=== PATIENT | female | born 1935 | race Caucasian/White ===

== ENCOUNTER → 2016-02-15 | Outpatient (CLI) | payer OTHER, MEDICARE ==
[~2016-02-15] VITALS: Ht 157.5 cm; Wt 63.3 kg
[~2016-02-15] MED LIST: ATIVAN0.5 MG PO; CRESTOR5 MG PO; EVISTA PO; GABAPENTIN100 MG PO; IBUPROFEN 600600 M1 PO; LEVOTHYROXIN0.088 MG PO; LYRICA 50 MG50 MG PO; LYRICA 75 MG CA75 MG PO; PREVACID15 MG PO; QUININE PO; SYNTHROID125 MCG PO; TRAMADOL 50 MG50 MG PO
--- NOTE | ~2016-02-15 | HPC ---
[facility] [address] [place] [address] PAIN MANAGEMENT CONSULTATION Name: SARAH BETH ROSARIO Room #: REG ELLEChelly Lea#: [id number] Admission: 02/15/16 Attend Phys: Eddie Baldwin MD Discharge: Date of : 31 Report #: [id number] THIS REPORT FOR: //name// CC: Harmeet Baldwin DATE OF SERVICE: 02/15/2016 Followup visit for post-laminectomy syndrome with radiculopathy, new herniated disk at L2-L3. The patient returns to pain clinic today, has pain radiating into her left hip and thigh. She has had previous back surgery. A new MRI performed earlier in the year revealed that there is a herniated disk at L2-L3 with encroachment upon lateral recess posteriorly. This is likely affecting nerve roots that passed by just below the communis. Epidural steroid injection provided over 50% relief earlier in the year. She would like another injection today. We also discussed Lyrica at the request of ____. Although it does seem to be helpful at a dose of 75 mg 3 times a day, it is quite expensive. We talked about a transition today and I started her on 200 mg of gabapentin 3 times a day with instructions every 48 hours to increase by another 100 mg. She can go up to 200, then 300 and then 400 three times daily and see if this will accomplish the same goal as the Lyrica, saving her quite a bit of money. She will watch for additional side effects from this transition. I have asked her to make the transition straight over on 1 day without tapering one to the other. PHYSICAL EXAMINATION: She is pleasant, alert and oriented, 81 years old, moves easily from sitting to standing position and ambulates without antalgic features. She has tenderness across her back and a scar. She has straight leg raising pain on the left that reproduces in the L2-L3 distribution. Sensation and strength are normal. IMPRESSION: Lumbar radiculopathy, L2-L3 herniated disk with extruded fragment. PROCEDURE: Epidural steroid injection under fluoroscopic guidance. PROCEDURE NOTE: After both written and informed consent to include risk of spinal cord damage, increased pain, weakness and dural puncture, the patient was taken to the fluoroscopy suite, placed in the prone position. After sterile prep and drape, a skin wheal with lidocaine was raised. A 22-gauge epidural Tuohy needle was inserted in the midline at L2-L3 with good loss to resistance. Negative aspiration for cerebrospinal fluid or blood was noted. Then 1 mL of Omnipaque under biplanar fluoroscopy showed good spread within the epidural space. This was followed with triamcinolone 80 mg of 0.5% lidocaine 3 mL, 0.5 mL Xylocaine was then injected to flush the needle; it was removed. The patient [address] [address] PAIN MANAGEMENT CONSULTATION Name: SARAH BETH ROSARIO Room #: REG [facility].#: [id number] Admission: 02/15/16 Attend Phys: Eddie Baldwin MD Discharge: Date of : 31 Report #: [id number] was monitored for an appropriate period of time and discharged in good and stable condition. Followup visit as needed. <ELECTRONICALLY SIGNED> By: Eddie Baldwin MD 02/17/16 1329 [id number] Eddie Baldwin MD /nt
[2016-02-15 13:54] VITALS: BP 143/73
== END | disposition home or self-care (01) ==
LOC: PAIN 02-08 06:16
DX: M51.16 Intervertebral disc disorders with radiculopathy, lumbar region (principal)

== ENCOUNTER → 2016-07-19 | Outpatient (CLI) | payer OTHER, MEDICARE ==
[~2016-07-19] VITALS: Ht 157.5 cm; Wt 64.0 kg
[~2016-07-19] MED LIST changes: +NEURONTIN600 MG PO; +TOPROL XL25 MG PO
--- NOTE | ~2016-07-19 | HPC ---
[facility] [place] [address] [address] [place] [address] PAIN MANAGEMENT CONSULTATION Name: SAARH BETH ROSARIO Room #: REG NORMA Elissa.#: [id number] Admission: 07/19/16 Attend Phys: Eddie Baldwin MD Discharge: Date of : 31 Report #: [id number] THIS REPORT FOR: //name// CC: MIGNON Baldwin DATE OF SERVICE: 07/19/2016 Followup visit for low back pain with radiculopathy. The patient presents back to the pain clinic with pain across the lumbosacral segment. She has some radiating pain also back into the buttocks, left worse than right. Pain tends to follow distribution, more consistent with the lower dermatomes where she has had pain before and also she has had lumbar decompressive laminectomy. She does also have a herniated nucleus pulposus and an extruded fragment at L2-L3 and we have injected her up in that region before. Most of the pain, however, today is well below that region and she does not have any radicular pain in that distribution. We have discussed a caudal injection today as a way of easing those symptoms. If she responds well, she might receive months of pain relief. MEDICATIONS: Reviewed and reconciled from the electronic medical record. PHYSICAL EXAMINATION: The patient moves from a sitting to standing position, ambulates without antalgic features. She has tenderness across the low back with pain with forward flexion and extension. Straight leg raising is positive into the left buttock. Pain across the lumbosacral segment, below the iliac crest. Scar is tender as well as the paravertebral region. IMPRESSION: Chronic low back pain, post-laminectomy syndrome with radiculopathy. Pain seems to involve the affected dermatomes of the lumbosacral segment, L4, L5, S1. RECOMMENDATION: Caudal epidural injection under fluoroscopic guidance. PROCEDURE: The patient was taken to fluoroscopic suite, placed prone, skin prepped with ChloraPrep. Skin anesthetized the sacral hiatus. A 25-gauge needle advanced into the sacral hiatus without difficulty. After negative aspiration, I injected 0.5 mL of Omnipaque with excellent spread of dye and seen extending up into the lower lumbar reaches in the posterior epidural space. This was then followed by 12 mL of 0.125% bupivacaine mixed with [address] [address] PAIN MANAGEMENT CONSULTATION Name: SARAH BETH ROSARIO Room #: REG NORMA Lea#: [id number] Admission: 07/19/16 Attend Phys: Eddie Baldwin MD Discharge: Date of : 31 Report #: [id number] triamcinolone. She tolerated the procedure well. Pain was reduced at the time of discharge. Followup visit as needed. By: 1621 33 Eddie Baldwin MD /nt
[2016-07-19 14:40] VITALS: BP 133/61
== END ==
LOC: PAIN 05-03 10:55
DX: M54.16 Radiculopathy, lumbar region (principal); G89.29 Other chronic pain; M96.1 Postlaminectomy syndrome, not elsewhere classified; Z98.890 Other specified postprocedural states

== ENCOUNTER → 2017-01-07 | Outpatient (CLI) | payer OTHER, MEDICARE ==
[~2017-01-07] VITALS: Ht 157.5 cm; Wt 67.1 kg
[~2017-01-07] MED LIST changes: +CALCIUM 600 +1 EAC1 PO; +CYSTEX TABLET1 EAC1 PO; +NEURONTIN 300300 M1 PO; +VITAMIN D2000 UNIT PO
--- NOTE | ~2017-01-07 | HPC ---
[facility] [place] [address] PAIN MANAGEMENT CONSULTATION Name: SARAH BETH ROSARIO Room #: REG NORMA Leonora#: [id number] Admission: 01/07/17 Attend Phys: Eddie Baldwin MD Discharge: Date of : 31 Report #: [id number] THIS REPORT FOR: //name// CC: Harmeet Baldwin DATE OF SERVICE: 01/07/2017 Followup visit for post-laminectomy syndrome with radiculopathy and bilateral foot pain, diagnosed as peripheral neuropathy. The patient returns to pain clinic today to discuss options for treatment of her bilateral lower extremity pain. Pain is symmetrical radiates from the knees down into her feet. It is a stocking distribution. It is a burning, aching sensation. It has been helped by gabapentin. She is concerned about the side effects and we reviewed this in some detail today. She also asked about other medication options and several questions over the course of our 25-minute visits today about alternative measures including blue lasers and other non-Medicare approved treatments. She says that the pain varies from day to day, but it has never gone. Pain can be incapacitating at times. She is uncertain of what to do at those times. MEDICATIONS: Reviewed and reconciled from the electronic medical record. PAST MEDICAL HISTORY: Significant for osteoarthritis. This involves both hips and shoulders. PHYSICAL EXAMINATION: She is pleasant 81-year-old, alert and oriented. She moves easily from sitting to standing position. She does not use a cane to ambulate. She has a scar across her low back that is tender, it radiates into the iliac crest. Straight leg raising bilaterally increases some pain. She has decreased sensation bilateral in the lower extremities consistent with neuropathy and a nondermatomal distribution. IMPRESSION: 1. Peripheral neuropathy. 2. Post-laminectomy syndrome. 3. Management of high risk medication. PLAN: 1. I renewed her gabapentin. She may try and reduce her dose by titration downwards towards 900 mg. She has some edema, which is likely related to the Lyrica or gabapentin that she can see if that goes away if she does so. 2. I have added tramadol for her 50 mg 1 tablet q. 6 hours. Side effects were reviewed and discussed. Importance of safeguarding all medications discussed. [address] [address] PAIN MANAGEMENT CONSULTATION Name: SARAH BETH ROSARIO Room #: REG [facility] Leonora#: [id number] Admission: 01/07/17 Attend Phys: Eddie Baldwin MD Discharge: Date of : 31 Report #: [id number] Followup visit planned in 3 months. By: 1240 [id number] Eddie Baldwin MD /nt
[2017-01-07 11:23] VITALS: BP 138/70
== END ==
LOC: PAIN 06:55
DX: G62.9 Polyneuropathy, unspecified (principal); M79.672 Pain in left foot; M79.671 Pain in right foot; M96.1 Postlaminectomy syndrome, not elsewhere classified; Z79.899 Other long term (current) drug therapy

== ENCOUNTER → 2020-03-07 | Outpatient (CLI) | payer OTHER, MEDICARE | LOC: ULTRA 09:17 | PROVIDERS: ATTEND Family Medicine | DX: E74.39 Other disorders of intestinal carbohydrate absorption (principal); M79.89 Other specified soft tissue disorders; G62.9 Polyneuropathy, unspecified; M79.605 Pain in left leg ==